=== PATIENT | female | born 1995 | race Caucasian/White ===

== ENCOUNTER 2017-03-13 04:19 | Emergency (ER) | payer OTHER ==
[~2017-03-13] VITALS: Ht 160 cm; Wt 56.0 kg
[~2017-03-13 04:19] MED LIST: BIRTH CONTROL; CODE1CAP2 PO; HYOS0.375 PO
[2017-03-13] MEDS ORDERED: ONDANSETRON 2MG/ML, 2ML ONE ×2 (04:39→06:14)
[2017-03-13] MEDS ORDERED: SODIUM CHLORIDE FLUSH 10ML SYR IVF ONE (05:00)
[2017-03-13] MEDS ORDERED: FAMOTIDINE 20 MG/2 ML IVP ONE (05:00)
[2017-03-13] MEDS ORDERED: ONDANSETRON 2MG/ML, 2ML IVPush ONE (05:00)
[2017-03-13] MEDS ORDERED: SODIUM CHLORIDE 0.9% 1,000ML IVBOLUS ONE (05:00)
[2017-03-13] MEDS ORDERED: FAMOTIDINE 20 MG/2 ML ONE (05:46)
[2017-03-13 05:49] LABS: HEMATOCRIT 43.7 % (34.6-47.8); HEMOGLOBIN 14.9 g/dL (11.7-16.4); WHITE BLOOD COUNT 11.4 x10^3/uL (3.4-10)
[2017-03-13 05:55] LABS: ASPARTATE AMINO TRANSFERASE 23 U/L (15-37); BLOOD UREA NITROGEN 18 mg/dL (7-18)
[2017-03-13 06:35] VITALS: BP 102/61
== END 2017-03-13 06:56 | disposition home or self-care (01) ==
LOC: ED 06:25
DX: R11.2 Nausea with vomiting, unspecified (principal); R19.7 Diarrhea, unspecified
CPT/HCPCS: 36415; 80053; 81001; 83690; 84703; 85025; 87086; 87147; 96361; 96374; 96375; 99284; J2405; J7030; S0028

== ENCOUNTER → 2017-12-26 | Outpatient (CLI) | payer OTHER | END | disposition home or self-care (01) | LOC: CFH 14:53 | PROVIDERS: ATTEND Family Medicine | DX: R31.9 Hematuria, unspecified (principal) | CPT/HCPCS: 76770 ==

== ENCOUNTER 2020-06-02 15:06 | Outpatient (CLI) | payer OTHER ==
[2020-06-02] MEDS ORDERED: TERBUTALINE 1 MG/ML, 1ML ONE (15:41)
[2020-06-02] MEDS ORDERED: TERBUTALINE 1 MG/ML, 1ML SQ ONE (16:00)
[2020-06-02 16:06] LABS: MICROSCOPIC AUTO
[2020-06-02] MEDS ORDERED: PREN1TAB10 PO (16:45)
== END 2020-06-02 17:06 | disposition home or self-care (01) ==
LOC: LDOP 15:06
PROVIDERS: ATTEND Obstetrics & Gynecology
DX: O26.899 Other specified pregnancy related conditions, unspecified trimester (principal); R10.9 Unspecified abdominal pain
CPT/HCPCS: 81001; 87086; 99211; J3105; G0463

== ENCOUNTER 2020-09-03 11:28 | Inpatient (IN) | payer OTHER ==
[~2020-09-03] VITALS: Ht 160 cm; Wt 74.5 kg
[~2020-09-03 11:28] MED LIST changes: +PREN1TAB10 PO
[2020-09-08] MEDS ORDERED: LIDOCAINE 1%, 20ML ONE (04:09)
[2020-09-08] MEDS ORDERED: MISOPROSTOL 200 MCG TABLET ONE (04:09)
[2020-09-08] MEDS ORDERED: NEWBORN KIT ONE (04:09)
[2020-09-08] MEDS ORDERED: OXYTOCIN 30U/ 0.9% NaCL 500ML 500 ML ONE (04:09)
[2020-09-08] MEDS ORDERED: FERR160T5 PO (04:21)
[2020-09-08] MEDS ORDERED: ASCO250T32 PO (04:21)
[2020-09-08] MEDS ORDERED: B6/F1TAB PO (04:21)
[2020-09-08 04:24] VITALS: BP 116/72
[2020-09-08] MEDS ORDERED: LACTATED RINGERS 1,000 ML IV SCH ×2 (05:00→19:30)
[2020-09-08] MEDS ORDERED: ONDANSETRON 2MG/ML, 2ML IVPush PRN ×2 (05:00→19:30)
[2020-09-08] MEDS ORDERED: ALUMINUM/MAG/SIMETHICONE 30 ML UDC PO PRN (05:00)
[2020-09-08] MEDS ORDERED: D5%-LACTATED RINGERS 1,000 ML IV SCH (05:00)
[2020-09-08] MEDS ORDERED: SODIUM CITRATE/CITRIC ACID 30 ML UDC PO PRN (05:00)
[2020-09-08] MEDS ORDERED: FENTANYL PF 100 MCG/2ML IVPush PRN (05:00)
[2020-09-08] MEDS ORDERED: VANCOMYCIN PER PHARMACY MC PRN (05:00)
[2020-09-08] MEDS ORDERED: TERBUTALINE 1 MG/ML, 1ML IVPush PRN (05:00)
[2020-09-08] MEDS ORDERED: FENTANYL PF 100 MCG/2ML IV PRN (05:00)
[2020-09-08] MEDS ORDERED: OXYTOCIN 30U/ 0.9% NaCL 500ML 500 ML IV ONE (05:00)
[2020-09-08] MEDS ORDERED: OXYTOCIN 30U/ 0.9% NaCL 500ML 500 ML IV PRN (05:00)
[2020-09-08] MEDS ORDERED: CALCIUM CARBONATE 500 MG TAB.CHEW PO PRN (05:00)
[2020-09-08] MEDS ORDERED: MISOPROSTOL 25 MCG TABLET VG PRN (05:00)
[2020-09-08] MEDS ORDERED: METOCLOPRAMIDE 5 MG/ML, 2ML IVPush PRN (05:00)
[2020-09-08] MEDS ORDERED: TERBUTALINE 1 MG/ML, 1ML SQ PRN (05:00)
[2020-09-08 05:19] LABS: BASOPHILS % (AUTO) 0 % (0-1); EOSINOPHILS % (AUTO) 1 % (1-7); LYMPHOCYTES % (AUTO) 20 % (22-44); MEAN CORPUSCULAR HEMOGLOBIN 32.9 pg (27.0-34.8); MEAN CORPUSCULAR HGB CONC 34.8 g/dL (32.4-35.8); MONOCYTES % (AUTO) 9 % (2-9); NEUTROPHILS % (AUTO) 69 % (42-75); PLATELET COUNT 182 x10^3/uL (130-400); RED BLOOD COUNT 3.75 x10^6/uL (3.82-5.3); RED CELL DISTRIBUTION WIDTH 13.6 % (9.6-15.2)
[2020-09-08] MEDS: VANCOMYCIN 1,000 MG in SODIUM CHLORIDE 0.9% 100 ML IV SCH ×2 (05:58→17:49)
[2020-09-08] MEDS ORDERED: VANCOMYCIN PMX 1GM/200ML 200 ML IV SCH (06:00)
[2020-09-08] MEDS ORDERED: FENTANYL/BUPIV./NS/PF 250 ML EPIDCONT ONE (18:42)
[2020-09-08] MEDS ORDERED: BUPIVACAINE 0.25% ONE (18:42)
[2020-09-08] MEDS ORDERED: DIPHENHYDRAMINE 50 MG/ML, 1ML IVPush PRN (19:30)
[2020-09-08] MEDS ORDERED: EPHEDRINE 50 MG/ML, 1ML IVPush PRN (19:30)
[2020-09-08] MEDS ORDERED: NALOXONE 0.4 MG/ML, 1ML IVPush PRN (19:30)
[2020-09-08] MEDS ORDERED: LACTATED RINGERS 1,000 ML IVBOLUS PRN (19:30)
[2020-09-08] MEDS ORDERED: FENTANYL/BUPIV./NS/PF 250 ML EPIDCONT SCH (19:30)
[2020-09-09] MEDS ORDERED: CALCIUM CARBONATE 500 MG TAB.CHEW PO PRN (08:30)
[2020-09-09] MEDS ORDERED: HYDROcodone/APAP 5/325 TABLET PO PRN (08:30)
[2020-09-09] MEDS ORDERED: DOCUSATE 100 MG CAPSULE PO PRN (08:30)
[2020-09-09] MEDS ORDERED: SIMETHICONE 80 MG CHEW TAB PO PRN (08:30)
[2020-09-09] MEDS ORDERED: ONDANSETRON 2MG/ML, 2ML IV PRN (08:30)
[2020-09-09] MEDS ORDERED: MISOPROSTOL 200 MCG TABLET PR PRN (08:30)
[2020-09-09] MEDS: OXYTOCIN 30U/ 0.9% NaCL 500ML 500 ML IV SCH ×2 (08:30→18:30)
[2020-09-09] MEDS ORDERED: ACETAMINOPHEN 325 MG TABLET PO PRN ×2 (08:30)
[2020-09-09] MEDS ORDERED: METHYLERGONOVINE 0.2 MG/ML IM PRN (08:30)
[2020-09-09] MEDS ORDERED: CARBOPROST TROMETHAMINE 250 MCG/ML, 1ML IM PRN (08:30)
[2020-09-09] MEDS: PRENATAL VIT/IRON/FA 1 EACH TABLET PO SCH (09:00)
[2020-09-09] MEDS: IBUPROFEN 600 MG TABLET PO PRN ×3 (09:41→23:38)
[2020-09-09 10:00] VITALS: BP 101/65
[2020-09-09 15:05] VITALS: BP 103/69
[2020-09-09 15:34] LABS: BASOPHILS % (AUTO) 1 % (0-1); EOSINOPHILS % (AUTO) 1 % (1-7); LYMPHOCYTES % (AUTO) 8 % (22-44); MEAN CORPUSCULAR HEMOGLOBIN 32.6 pg (27.0-34.8); MEAN CORPUSCULAR HGB CONC 34.5 g/dL (32.4-35.8); MEAN PLATELET VOLUME 8.5 fL (7.4-10.4); MONOCYTES % (AUTO) 7 % (2-9); NEUTROPHILS % (AUTO) 84 % (42-75); PLATELET COUNT 157 x10^3/uL (130-400); RED BLOOD COUNT 3.33 x10^6/uL (3.82-5.3); RED CELL DISTRIBUTION WIDTH 13.5 % (9.6-15.2)
[2020-09-09] MEDS: HYDROcodone/APAP 5/325 TABLET PO PRN ×2 (18:31→23:39)
[2020-09-09 19:25] VITALS: BP 96/58
[2020-09-09 23:47] VITALS: BP 107/69
[2020-09-10] MEDS: OXYTOCIN 30U/ 0.9% NaCL 500ML 500 ML IV SCH (04:30)
[2020-09-10 04:45] VITALS: BP 102/66
[2020-09-10] MEDS: HYDROcodone/APAP 5/325 TABLET PO PRN (06:29)
[2020-09-10] MEDS: IBUPROFEN 600 MG TABLET PO PRN (06:29)
[2020-09-10 07:30] VITALS: BP 107/74
[2020-09-10] MEDS: PRENATAL VIT/IRON/FA 1 EACH TABLET PO SCH (09:00)
[2020-09-10] MEDS ORDERED: HYDR-2214 PO ×2 (09:23→09:25)
[2020-09-10] MEDS ORDERED: IBUP-1222 PO (09:25)
[2020-09-10] MEDS ORDERED: DIPH,PERTUSS(ACELL),TET VAC/PF NC IM-VACC ONE (12:56)
== END 2020-09-10 13:45 | disposition home or self-care (01) | DRG 807 ==
LOC: LDIP 09-08 04:05 → 2NW 09-09 09:49
PROVIDERS: ADMIT Obstetrics & Gynecology; ATTEND Obstetrics & Gynecology
PROC: 10E0XZZ Delivery of Products of Conception, External Approach (ICD-10-PCS; principal; 2020-09-09)
PROC: 3E033VJ Introduction of Other Hormone into Peripheral Vein, Percutaneous Approach (ICD-10-PCS; 2020-09-09)
PROC: 10H07YZ Insertion of Other Device into Products of Conception, Via Natural or Artificial Opening (ICD-10-PCS; 2020-09-09)
PROC: 3E0R3BZ Introduction of Anesthetic Agent into Spinal Canal, Percutaneous Approach (ICD-10-PCS; 2020-09-09)
PROC: 00HU33Z Insertion of Infusion Device into Spinal Canal, Percutaneous Approach (ICD-10-PCS; 2020-09-09)
DX: O48.0 Post-term pregnancy (principal); Z37.0 Single live birth; Z3A.40 40 weeks gestation of pregnancy; Z20.822 Contact with and (suspected) exposure to COVID-19
CPT/HCPCS: 36415; 85025; 86592; 86850; 86900; 87635; G0378; J3370; J2590; J3010; J7120